=== PATIENT | female | born 1990 ===

== ENCOUNTER 2018-12-30 14:20 | Emergency (ER) | payer OTHER ==
[2018-12-30 14:25] VITALS: BP 109/86
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
[2018-12-30] MEDS ORDERED: HYDR-385 PO (15:02)
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
== END 2018-12-30 15:05 | disposition home or self-care (01) ==
LOC: ER 15:04
DX: S99.191A Other physeal fracture of right metatarsal, initial encounter for closed fracture (principal)
CPT/HCPCS: 99283